=== PATIENT | female | born 2000 | race African-American/Black ===

== ENCOUNTER 2019-05-31 21:10 | Emergency (ER) | payer MEDICAID ==
[~2019-05-31] VITALS: Ht 167.6 cm; Wt 118.0 kg
[2019-05-31 21:56] VITALS: BP 101/80
[2019-06-01] MEDS ORDERED: SODIUM CHLORIDE 0.9% 1,000 ML IV ONE (00:28)
== END 2019-06-01 01:35 | disposition left against medical advice (07) ==
LOC: ER 21:10
DX: M79.10 Myalgia, unspecified site (principal); J45.909 Unspecified asthma, uncomplicated
CPT/HCPCS: 71045; 99284; J7030

== ENCOUNTER 2019-06-01 02:37 | Emergency (ER) | payer MEDICAID ==
[~2019-06-01] VITALS: Ht 167.6 cm; Wt 120.0 kg
[2019-06-01] MEDS ORDERED: SODIUM CHLORIDE 0.9% 1,000 ML IV ONE (04:47)
[2019-06-01 05:45] LABS: BASOPHILS % 0.5 % (0.0-2.0); EOSINOPHILS % 0.7 % (0.0-5.0); HEMATOCRIT. 27.3 % (36.0-48.0); HEMOGLOBIN. 8.3 g/dL (12.0-16.0); LYMPHOCYTES % 39.2 % (20.0-50.0); MEAN CORPUSCULAR HEMOGLOBIN 18.8 pg (28.0-32.0); MEAN CORPUSCULAR VOLUME 61.5 fL (81.0-99.0); MEAN PLATELET VOLUME 8.8 fl (7.4-10.4); MONOCYTES % 6.6 % (2.0-8.0); PLATELET 326 x1000/uL (130-400); RED BLOOD CELL COUNT 4.44 mill/uL (4.2-5.4); RED CELL DISTRIBUTION WIDTH 18.2 % (11.6-14.6)
[2019-06-01 05:55] LABS: CHLORIDE 104 mEq/L (98-107)
[2019-06-01 06:35] VITALS: BP 133/58
[2019-06-01 06:51] LABS: PLATELET ESTIMATE NORMAL
== END 2019-06-01 06:36 | disposition home or self-care (01) ==
LOC: ER 02:56
DX: M79.10 Myalgia, unspecified site (principal); J45.909 Unspecified asthma, uncomplicated; J40 Bronchitis, not specified as acute or chronic; D64.9 Anemia, unspecified
CPT/HCPCS: 36415; 80053; 85025; 96360; 99283; J7030

== ENCOUNTER 2019-06-03 23:28 | Emergency (ER) | payer MEDICAID ==
[~2019-06-03] VITALS: Ht 167.6 cm; Wt 116.9 kg
[2019-06-04] MEDS ORDERED: IBUPROFEN 600MG TABLET PO STA (00:31)
[2019-06-04] MEDS ORDERED: ALBUTEROL (0.083%) 2.5MG/3ML NEB HHN NR (00:33)
[2019-06-04 01:21] LABS: CLARITY URINE CLOUDY (CLEAR); COLOR URINE DARK YELLOW (YELLOW); KETONES URINE TRACE (NEGATIVE); LEUKOCYTE ESTERASE URINE 2+ (NEGATIVE); NITRITE URINE NEGATIVE (NEGATIVE); OCCULT BLOOD URINE NEGATIVE (NEGATIVE); PROTEIN URINE 1+ (NEGATIVE); SPECIFIC GRAVITY URINE 1.041 (1.005-1.030)
[2019-06-04] MEDS ORDERED: NITROFURANTOIN 100MG M/M CAPSULE PO NR (01:30)
[2019-06-04 02:21] VITALS: BP 134/74
== END 2019-06-04 02:22 | disposition home or self-care (01) ==
LOC: ER 23:28
DX: S92.911A Unspecified fracture of right toe(s), initial encounter for closed fracture (principal); R51 Headache; R06.00 Dyspnea, unspecified; N39.0 Urinary tract infection, site not specified; J45.909 Unspecified asthma, uncomplicated; W18.30XA Fall on same level, unspecified, initial encounter; Y93.89 Activity, other specified; Y92.89 Other specified places as the place of occurrence of the external cause; Y99.8 Other external cause status
CPT/HCPCS: 71045; 81003; 81025; 87086; 94640; 99284; J7610; Z7610

== ENCOUNTER 2019-06-17 20:51 | Emergency (ER) | payer MEDICAID ==
[~2019-06-17] VITALS: Ht 167.6 cm; Wt 113.5 kg
[2019-06-18] MEDS ORDERED: ACETAMINOPHEN 325MG TABLET PO ONE
[2019-06-18] MEDS ORDERED: SODIUM CHLORIDE 0.9% 1,000 ML IV ONE
[2019-06-18 00:21] VITALS: BP 112/75
[2019-06-18 00:33] LABS: CHLORIDE 107 mEq/L (98-107)
[2019-06-18 00:40] LABS: EOSINOPHILS % 0.2 % (0.0-5.0); HEMATOCRIT. 31.2 % (36.0-48.0); HEMOGLOBIN. 9.6 g/dL (12.0-16.0); LYMPHOCYTES % 25.9 % (20.0-50.0); MEAN CORPUSCULAR HEMOGLOBIN 18.7 pg (28.0-32.0); MEAN CORPUSCULAR VOLUME 61.1 fL (81.0-99.0); MEAN PLATELET VOLUME 8.6 fl (7.4-10.4); MONOCYTES % 7.7 % (2.0-8.0); NEUTROPHILS % 65.2 % (40.0-76.0); PLATELET 337 x1000/uL (130-400); RED CELL DISTRIBUTION WIDTH 18.8 % (11.6-14.6)
[2019-06-18 00:51] LABS: PLATELET ESTIMATE NORMAL
[2019-06-18] MEDS ORDERED: PREDNISONE 20MG TABLET PO ONE (01:15)
[2019-06-18] MEDS ORDERED: IPRATROPIUM/ALBUTEROL 0.5-3(2.5)MG/3ML NEB HHN ONE (01:15)
== END 2019-06-18 01:20 | disposition left against medical advice (07) ==
LOC: ER 20:51
DX: J06.9 Acute upper respiratory infection, unspecified (principal); R06.02 Shortness of breath; J45.909 Unspecified asthma, uncomplicated
CPT/HCPCS: 36415; 71045; 80053; 81025; 83880; 84484; 85025; 93005; 94640; 99285; J7030; J7512; J7610; Z7610

== ENCOUNTER 2019-06-20 15:29 | Emergency (ER) | payer MEDICAID ==
[~2019-06-20] VITALS: Ht 172.7 cm; Wt 81.0 kg
[2019-06-20 16:23] VITALS: BP 122/64
== END 2019-06-20 17:30 | disposition left against medical advice (07) ==
LOC: ER 15:29
DX: R05 Cough (principal); R09.81 Nasal congestion; Z53.21 Procedure and treatment not carried out due to patient leaving prior to being seen by health care provider

== ENCOUNTER 2019-06-20 22:12 | Emergency (ER) | payer MEDICAID ==
[~2019-06-20] VITALS: Ht 167.6 cm; Wt 118.0 kg
[2019-06-20] MEDS ORDERED: ACETAMINOPHEN 500MG TABLET PO ONE (23:15)
[2019-06-20] MEDS ORDERED: KETOROLAC 60MG/2ML VIAL IM ONE (23:15)
[2019-06-21 04:05] VITALS: BP 132/76
== END 2019-06-21 04:06 | disposition home or self-care (01) ==
LOC: ER 22:12
DX: J06.9 Acute upper respiratory infection, unspecified (principal); J45.909 Unspecified asthma, uncomplicated; D64.9 Anemia, unspecified
CPT/HCPCS: 71045; 81025; 93005; 96372; 99283; J1885

== ENCOUNTER 2019-06-22 09:59 | Emergency (ER) | payer MEDICAID ==
[~2019-06-22] VITALS: Ht 167.6 cm; Wt 98.0 kg
[2019-06-22] MEDS ORDERED: IPRATROPIUM BROMIDE (0.02%) 0.5MG/2.5ML NEB HHN STA (10:58)
[2019-06-22] MEDS ORDERED: ALBUTEROL (0.083%) 2.5MG/3ML NEB HHN STA (10:58)
[2019-06-22] MEDS ORDERED: METHYLPREDNISOLONE SOD SUCC 125 MG/2 ML VIAL IV STA (10:58)
[2019-06-22 12:37] LABS: BASOPHILS % 0.5 % (0.0-2.0); EOSINOPHILS % 0.4 % (0.0-5.0); HEMATOCRIT. 27.5 % (36.0-48.0); HEMOGLOBIN. 8.5 g/dL (12.0-16.0); LYMPHOCYTES % 17.6 % (20.0-50.0); MEAN CORPUSCULAR HEMOGLOBIN 18.9 pg (28.0-32.0); MEAN CORPUSCULAR VOLUME 61.1 fL (81.0-99.0); MEAN PLATELET VOLUME 8.8 fl (7.4-10.4); MONOCYTES % 6.8 % (2.0-8.0); NEUTROPHILS % 74.7 % (40.0-76.0); PLATELET 298 x1000/uL (130-400); RED BLOOD CELL COUNT 4.49 mill/uL (4.2-5.4); RED CELL DISTRIBUTION WIDTH 19.3 % (11.6-14.6)
[2019-06-22 12:41] LABS: CHLORIDE 106 mEq/L (98-107)
[2019-06-22 13:05] LABS: PLATELET ESTIMATE NORMAL
[2019-06-22 13:13] LABS: HCG SCREEN NEGATIVE
[2019-06-22] MEDS ORDERED: POTASSIUM CHLORIDE 20MEQ TABLET SR PO ONE (13:15)
[2019-06-22] MEDS ORDERED: ONDANSETRON HCL 4MG/2ML INJ IV PRN (14:45)
[2019-06-22] MEDS ORDERED: CLONIDINE 0.1MG TABLET PO PRN (14:45)
[2019-06-22] MEDS ORDERED: ACETAMINOPHEN 325MG TABLET PO PRN (14:45)
[2019-06-22] MEDS ORDERED: IPRATROPIUM/ALBUTEROL 0.5-3(2.5)MG/3ML NEB HHN PRN (14:45)
[2019-06-22 15:59] LABS: PHOSPHORUS 3.6 mg/dL (2.5-4.9)
[2019-06-22] MEDS ORDERED: ENOXAPARIN 40MG/0.4ML SYR SUBCUT SCH (16:00)
[2019-06-22] MEDS ORDERED: LORATADINE 10MG TABLET PO SCH (16:15)
[2019-06-22] MEDS ORDERED: MONTELUKAST SODIUM 10MG TABLET PO SCH (17:00)
[2019-06-22] MEDS ORDERED: IPRATROPIUM/ALBUTEROL 0.5-3(2.5)MG/3ML NEB HHN SCH (18:00)
[2019-06-22 18:34] VITALS: BP 133/47
[2019-06-22] MEDS ORDERED: FAMOTIDINE 20MG/2ML VIAL IV SCH (21:00)
== END 2019-06-22 19:41 | disposition left against medical advice (07) ==
LOC: ER 09:59 → CANBEDREQ 23:52
DX: J45.901 Unspecified asthma with (acute) exacerbation (principal); J96.00 Acute respiratory failure, unspecified whether with hypoxia or hypercapnia; D64.9 Anemia, unspecified; E87.6 Hypokalemia; R73.9 Hyperglycemia, unspecified
CPT/HCPCS: 36415; 71045; 71275; 80053; 82728; 83036; 83540; 83735; 84100; 84703; 85025; 85379; 87804; 93005; 94644; 96372; 96374; 99285; J1650; J2930; Z7610

== ENCOUNTER 2019-06-26 07:44 | Emergency (ER) | payer MEDICAID ==
[~2019-06-26] VITALS: Ht 167.6 cm; Wt 115.3 kg
[2019-06-26] MEDS ORDERED: SODIUM CHLORIDE 0.9% 1,000 ML IV ONE (09:27)
[2019-06-26 09:38] LABS: BASOPHILS % 1.5 % (0.0-2.0); EOSINOPHILS % 4.1 % (0.0-5.0); HEMATOCRIT. 25.8 % (36.0-48.0); LYMPHOCYTES % 29.1 % (20.0-50.0); MEAN CORPUSCULAR HEMOGLOBIN 19.2 pg (28.0-32.0); MEAN CORPUSCULAR VOLUME 61.9 fL (81.0-99.0); MEAN PLATELET VOLUME 8.6 fl (7.4-10.4); MONOCYTES % 6.1 % (2.0-8.0); NEUTROPHILS % 59.2 % (40.0-76.0); PLATELET 217 x1000/uL (130-400); RED BLOOD CELL COUNT 4.16 mill/uL (4.2-5.4); RED CELL DISTRIBUTION WIDTH 19.2 % (11.6-14.6)
[2019-06-26 09:39] LABS: CHLORIDE 107 mEq/L (98-107)
[2019-06-26 09:58] LABS: HCG SCREEN NEGATIVE
[2019-06-26 10:02] LABS: PLATELET ESTIMATE NORMAL
[2019-06-26] MEDS ORDERED: POTASSIUM CHLORIDE 20MEQ TABLET SR PO SCH (11:45)
[2019-06-26 13:58] VITALS: BP 104/57
== END 2019-06-26 13:55 | disposition home or self-care (01) ==
LOC: ER 08:01 → CANBEDREQ 15:49
DX: J12.9 Viral pneumonia, unspecified (principal); D50.9 Iron deficiency anemia, unspecified; E87.6 Hypokalemia; J45.909 Unspecified asthma, uncomplicated
CPT/HCPCS: 36415; 71045; 80053; 83605; 83880; 84484; 84703; 85025; 87040; 87420; 87804; 93005; 99285; J7030

== ENCOUNTER 2019-06-28 23:16 | Emergency (ER) | payer MEDICAID ==
[~2019-06-28] VITALS: Ht 167.6 cm; Wt 117.0 kg
[2019-06-29] MEDS ORDERED: ACETAMINOPHEN 325MG TABLET PO ONE (00:30)
[2019-06-29 02:22] VITALS: BP 128/70
== END 2019-06-29 02:26 | disposition home or self-care (01) ==
LOC: ER 23:16
DX: I80.9 Phlebitis and thrombophlebitis of unspecified site (principal); J45.909 Unspecified asthma, uncomplicated; D64.9 Anemia, unspecified
CPT/HCPCS: 93971; 99284

== ENCOUNTER 2019-06-29 09:26 | Emergency (ER) | payer MEDICAID ==
[~2019-06-29] VITALS: Ht 157.5 cm; Wt 114.0 kg
[2019-06-29 09:54] VITALS: BP 100/33
== END 2019-06-29 10:36 | disposition home or self-care (01) ==
LOC: ER 09:26
DX: B34.9 Viral infection, unspecified (principal); J45.909 Unspecified asthma, uncomplicated; D64.9 Anemia, unspecified
CPT/HCPCS: 99281

== ENCOUNTER 2019-07-01 12:47 | Emergency (ER) | payer MEDICAID ==
[~2019-07-01] VITALS: Ht 157.5 cm; Wt 114.0 kg
[2019-07-01 13:02] VITALS: BP 117/58
[2019-07-01] MEDS ORDERED: IBUPROFEN 800MG TABLET PO ONE (13:15)
== END 2019-07-01 13:34 | disposition home or self-care (01) ==
LOC: ER 12:47
DX: R05 Cough (principal); M79.18 Myalgia, other site; J45.909 Unspecified asthma, uncomplicated; D64.9 Anemia, unspecified
CPT/HCPCS: 99283

== ENCOUNTER 2019-07-06 17:07 | Emergency (ER) | payer MEDICAID ==
[~2019-07-06] VITALS: Ht 167.6 cm; Wt 113.0 kg
[2019-07-06] MEDS ORDERED: ACETAMINOPHEN 325MG TABLET PO ONE (18:30)
[2019-07-06] MEDS ORDERED: LEVOFLOXACIN 500MG TABLET PO ONE (18:45)
[2019-07-06 18:47] VITALS: BP 114/63
[2019-07-06 19:08] LABS: *AMPHETAMINES SCREEN URINE NEGATIVE (NEGATIVE); *BARBITURATES SCREEN URINE NEGATIVE (NEGATIVE); *BENZODIAZEPINES SCREEN URINE NEGATIVE (NEGATIVE)
[2019-07-06 19:09] LABS: *COCAINE SCREEN URINE NEGATIVE (NEGATIVE); METHADONE URINE SCREEN NEGATIVE (NEGATIVE); OPIATES URINE SCREEN NEGATIVE (NEGATIVE); PHENCYCLIDINE URINE SCREEN NEGATIVE (NEGATIVE)
[2019-07-06 19:10] LABS: CANNABINOID URINE SCREEN NEGATIVE (NEGATIVE)
== END 2019-07-06 18:50 | disposition home or self-care (01) ==
LOC: ER 17:07
DX: J18.9 Pneumonia, unspecified organism (principal); J45.909 Unspecified asthma, uncomplicated; Z91.19 Patient's noncompliance with other medical treatment and regimen
CPT/HCPCS: 80305; 81025; 99283